=== PATIENT | female | born 1965 | race American Indian/Alaskan Native ===

== ENCOUNTER 2017-02-11 15:43 | Emergency (ER) | payer SELFPAY ==
[2017-02-11 16:08] VITALS: BP 142/98
== END 2017-02-11 19:01 | disposition left against medical advice (07) ==
LOC: ED 15:43
DX: M25.551 Pain in right hip (principal); M54.5 Low back pain; Z53.21 Procedure and treatment not carried out due to patient leaving prior to being seen by health care provider